=== PATIENT | male | born 1975 | race Caucasian/White ===

== ENCOUNTER 2018-05-08 20:27 | Emergency (ER) | payer OTHER ==
[~2018-05-08] VITALS: Ht 165.1 cm; Wt 81.3 kg
[2018-05-08 20:40] VITALS: BP 153/86; PULSE 77; RESP 18; Ht 165.1 cm; Wt 81.3 kg
[2018-05-09] MEDS ORDERED: ACETAMINOPHEN 500 MG TAB PO STA (00:38)
[2018-05-09] MEDS ORDERED: IBUPROFEN 800 MG TAB PO ONE (01:00)
[2018-05-09] MEDS ORDERED: LIDOCAINE 2% VISC 15 ML CUP PO ONE (01:00)
--- NOTE | 2018-05-09 01:06 | ERD ---
ER Documentation Chief Complaint Chief Complaint C/O ST SINCE YESTERDAY, HELEN EAR ACHE TODAY HPI This is a 42-year-old female with a nonsignificant past medical history presents ED with complaints of sore throat since yesterday. Patient admits to headache, fever and bilateral earache. Denies neck pain, shortness breath, trouble breathing, cough, congestion, nausea, vomiting, diarrhea, constipation. No recent sick contact or recent travel. No known drug allergies. ROS All systems reviewed and are negative except as per history of present illness. Allergies Allergies: Coded Allergies: No Known Allergy (Unverified , 05/09/18) PMhx/Soc Medical and Surgical Hx: pt denies Medical Hx, pt denies Surgical Hx Hx Alcohol Use: No Hx Substance Use: No Hx Tobacco Use: No Smoking Status: Never smoker FmHx Family History: No diabetes Physical Exam Vitals Vital Signs Date Temp Pulse Resp B/P (MAP) Pulse Ox O2 O2 Flow FiO2 Time Delivery Rate 05/08/18 99.8 77 18 153/86 96 20:40 (108) Physical Exam Const: No acute distress Head: Atraumatic Eyes: Normal Conjunctiva ENT: Normal External Ears, Nose and Mouth. Tympanic membrane visualized bilaterally no bulging, erythema, purulent air-fluid line seen, oropharynx is remarkable for some erythema, no tonsillar adenopathy, exudate or erythema, no kissing tonsils, no uvula deviation, normal nasal mucosa Neck: Full range of motion. No meningismus. Resp: Clear to auscultation bilaterally Cardio: Regular rate and rhythm, no murmurs Psych: Normal Mood and Affect Results 24 hrs Current Medications Medications Dose Sig/Zhang Start Time Status Last (Trade) Ordered Route PRN Stop Time Admin Dose Reason Admin Ibuprofen 800 mg ONCE ONCE 05/09/18 DC 05/09/18 (Motrin) PO 01:00 05/09/18 00:43 01:01 1,000 mg ONCE STAT 05/09/18 DC 05/09/18 Acetaminophen PO 00:38 05/09/18 00:43 (Tylenol 00:39 Tab) Lidocaine 15 ml ONCE ONCE 05/09/18 DC 05/09/18 (Xylocaine PO 01:00 05/09/18 00:43 (Viscous)) 01:01 Procedures/MDM LAB INTERPRETATION: Strep negative ER COURSE: The patient was given Tylenol, Motrin and viscous lidocaine The medication was well tolerated and the patient reports improvement in symptoms. The patient was stable throughout ED course. I kept the patient and/or family informed of laboratory and diagnostic imaging results throughout the emergency room course. The patient was promptly evaluated and a treatment plan was devised based on H&P and other data. This plan was discussed with the patient who agreed and had no further questions or concerns prior to discharge. MEDICAL DECISION MAKIN-year-old male presents ED with sore throat times 2 days. Strep is negative. This is likely viral pharyngitis. At this time there is no ENT emergency. No evidence of epiglottitis, liquids, sepsis, meningitis, peritonsillar abscess, retropharyngeal abscess, mastoiditis, among others. Vitals are stable patient can be managed close outpatient follow-up. Advised patient follow-up with his primary in the next 48 hours. Return to ED with a with any worsening symptoms DISPOSITION PLAN: We discussed follow up with the patient's primary care doctor within 24 to 48 hours. Patient counseled regarding my diagnostic impression and care plan. Prior to discharge all questions answered. Pt agrees with treatment plan and understands strict return precautions. Precautionary instructions provided including instructions to return to the ER if not improving or for any worsening or changing symptoms or concerns. SPECIALIST FOLLOW UP RECOMMENDED: None Patient has been advised to follow up with primary care in 1-2 days. Disclaimer: Inadvertent spelling and grammatical errors are likely due to EHR/dictation software use and do not reflect on the overall quality of patient care. Also, please note that the electronic time recorded on this note does not necessarily reflect the actual time of the patient encounter. Blood Pressure Assessment: Patient's blood pressure was elevated (>120/80) but appears stable without evidence of hypertension emergency or urgency. The patient was counseled about the risks of hypertension and urged to pursue outpatient monitoring and therapy within a week with their primary care physician. Departure Diagnosis: Primary Impression: Sore throat Condition: Stable Patient Instructions: Self-Care for Sore Throats [facility] Additional Instructions: Paciente aconseja volver a Departamento de urgencias inmediatamente para sntomas nuevos o que empeoran . Paciente aconseja posteriores con el PCP en 1-2 jurado . Paciente verbaliza la comprehensin y est de acuerdo con el tratamiento y el curso de accin. Si el paciente no tiene ninguna de atencin primaria pueden seguir con [facility] [id number] [place] [address] o [facility] [address] [place] [id number] NAVI CROWDER PA-C May 09, 2018 01:06
[2018-05-09] MEDS ORDERED: IBUP-1542 PO (01:07)
== END 2018-05-09 01:28 | disposition home or self-care (01) ==
LOC: FTE 20:27
DX: J02.9 Acute pharyngitis, unspecified (principal)
CPT/HCPCS: 87880; Z7502; Z7610; 99283